=== PATIENT | female | born 1940 | race Caucasian/White ===

== ENCOUNTER 2016-06-06 07:29 | Day surgery (SDC) | payer MEDICARE ==
[~2016-06-06] VITALS: Ht 167.6 cm; Wt 65.5 kg
--- NOTE | ~2016-06-06 | OP ---
PATIENT NAME: DEJAH VILLARREAL MEDICAL RECORD: [id number] :40 LOCATION:D.OPS ADMISSION DATE: SURGEON: ANDREZ AMATO MD DATE OF OPERATION: 06/06/2016 PREOPERATIVE DIAGNOSES: 1. History of anal cancer. 2. Hypertension. POSTOPERATIVE DIAGNOSES: 1. History of anal cancer. 2. Hypertension. 3. Diverticulosis. PROCEDURE: Colonoscopy. SURGEON: Andrez Amato MD. REPORT OF PROCEDURE: An Olympus endoscope was advanced through the anus. We were able to pass all the way through the patient's cecum. The patient's prep at the cecum was not great, but I was able to see the general contour of the phillip, tried to irrigate the phillip off and was not able to get it clean very well. I did not see any enlarged masses or lesions protruding into the lumen. As we pulled back, the prep became much better. I did not see any masses, lesions or ulcerations. There were 2 or 3 separate diverticuli present in the sigmoid colon, 1 of these had some retained fecal material within it. I tried to irrigate this out, but it was impacting quite tightly. I did not see any masses in the rectal region, but there were some inflammatory changes near the anal verge, likely from the history of previous radiation. There were no ulcerations visible. There was no sign of any active bleeding. At this point, the insufflation and the scope were removed. I inspected the anus and saw no signs of any fissures, fistulas or hemorrhoids. COMPLICATIONS: None. CONDITION: Stable. ANESTHESIA: TIVA. BLOOD LOSS: None. TRANSINT:[id number] Voice Confirmation ID: [id number] DOCUMENT ID: [id number] ANDREZ AMATO MD CC: HUMA SHIPMAN MD and CHANTAL CROSS MD [id number] DICTATION DATE: 06/06/16 1051 REPORTER: 06/06/16 1753 [facility] 06/06/16 [address] [address] [place] [address]
[~2016-06-06 07:29] MED LIST: ADVIL100 M1 PO; COLACE100 MG PO; LOW DOSE ASPIRI81 M1 PO; MILK OF MAGNESI30 ML PO; MIRALAX17 GM PO; NORCO 10/325 TA1 TA1 PO; NORVASC5 MG PO; OS-CAL 500+D TA1 TAB PO; PRAVACHOL20 MG PO
[2016-06-06] MEDS ORDERED: OMEPRAZOLE20 M1 PO (09:02)
[2016-06-06] MEDS ORDERED: SYSTANE 0.3-0.4%5 ML EACH EYE (09:03)
[2016-06-06 09:04] VITALS: BP 130/83; Ht 167.6 cm; Wt 65.5 kg
--- NOTE | 2016-06-06 09:18 | NUR ---
0918 IV STARTED 22 GAUGE 1 STICK GOOD BLOOD RETURN LR AT O NO REDNESS OR SWELLING TO IV SITE.
[2016-06-06 10:30] LABS: BASOPHILS 0.3 % (0.0-2.0); EOSINOPHILS 5.1 % (0-7); HEMATOCRIT 43.3 % (36.0-48.0); HEMOGLOBIN 14.1 g/dL (12-16); IMMATURE GRANULOCYTES 0.2 % (0-5); LYMPHOCYTES 17.9 % (15-50); MCH 30.1 pg (26.0-34.0); MCHC 32.6 g/dL (31.0-37.0); MCV 92.3 fL (80.0-100.0); MEAN PLATELET VOLUME 10.1 fL (7.4-10.4); MONOCYTES 12.1 % (2-11); NEUTROPHILS 64.4 % (40-80); PLATELET COUNT 252 10x3/uL (130-400); RBC 4.69 10x6/uL (4.00-5.40); RDW 13.1 % (11.5-14.5)
[2016-06-06 10:33] LABS: CALC OSMOLALITY 282 mosm/kg (275-300); CARBON DIOXIDE 27.3 mmol/L (21.0-32.0); CHLORIDE - SERUM 106 mmol/L (98-107); CREATININE - SERUM 0.7 mg/dL (0.6-1.3); GLUCOSE 133 mg/dL (74-106); POTASSIUM - SERUM 3.6 mmol/L (3.5-5.1); SODIUM 142 mmol/L (136-145); UREA NITROGEN 8 mg/dL (7-18); eGFR NON AFRICAN AMERICAN 86 mL/min (90-120)
--- NOTE | 2016-06-06 14:12 | NUR ---
1200 IV DC WITH CATHER TIP INTACT
== END 2016-06-06 12:10 | disposition home or self-care (01) ==
LOC: D.OPS 07:29
PROVIDERS: Anesthesiology
DX: Z85.048 Personal history of other malignant neoplasm of rectum, rectosigmoid junction, and anus (principal); I10 Essential (primary) hypertension; K21.9 Gastro-esophageal reflux disease without esophagitis

== ENCOUNTER → 2017-02-06 15:16 | Outpatient (CLI) | payer MEDICARE ==
[2016-06-06 09:04] VITALS: BMI 23.3
[~2017-02-06 15:16] MED LIST changes: +OMEPRAZOLE20 M1 PO; +SYSTANE 0.3-0.4%5 ML EACH EYE
== END | disposition home or self-care (01) ==
LOC: D.MAMMO 15:16
DX: Z12.31 Encounter for screening mammogram for malignant neoplasm of breast (principal)

== ENCOUNTER 2017-11-03 10:39 | Outpatient (CLI) | payer MEDICARE, BC ==
[~2017-11-03] VITALS: Ht 167.6 cm; Wt 63.6 kg
--- NOTE | ~2017-11-03 | OP ---
PATIENT NAME: DEJAH VILLARREAL MEDICAL RECORD: [id number] :40 LOCATION:D.CAT ADMISSION DATE: SURGEON: NINFA BAKER MD DATE OF OPERATION: 11/03/2017 PROCEDURE: Lead portion of permanent pacemaker placement. INDICATION: Sick sinus syndrome with pauses. SURGEON: Andrez Aguilar MD DESCRIPTION OF PROCEDURE: The right subclavian was cannulated via modified Seldinger technique via Dr. Aguilar. First under fluoroscopic guidance, I placed the RV lead in RV apex without difficulty. Next, again under fluoroscopic guidance, I placed the right atrial lead in the right atrial appendage without difficulty. After adequate P waves and thresholds were obtained, the leads were attached to appropriate poles of the generator and the pocket was closed via Dr. Aguilar. IMPRESSION: Successful lead portion of permanent pacemaker placement. ESTIMATED BLOOD LOSS: Minimal. COMPLICATIONS: None. DISPOSITION: The floor, stable. TRANSINT:[id number] Voice Confirmation ID: [id number] DOCUMENT ID: [id number] NINFA BAKER MD at 0843 CC: [id number] DICTATION DATE: 11/03/17 1502 MORTICIAN HELPER: 11/03/17 1514 DEP CLI 11/04/17 [id number] [place] [address]
--- NOTE | ~2017-11-03 | OP ---
PATIENT NAME: DEJAH VILLARREAL MEDICAL RECORD: [id number] :40 LOCATION:D.CAT ADMISSION DATE: SURGEON: ANDREZ AMATO MD DATE OF OPERATION: 11/03/2017 PREOPERATIVE DIAGNOSES: 1. Sick sinus syndrome. 2. Hypertension. POSTOPERATIVE DIAGNOSES: 1. Sick sinus syndrome. 2. Hypertension. PROCEDURES: 1. Pacemaker placement. 2. Fluoroscopic interpretation. SURGEON: Andrez Amato MD CARBIDE OPERATOR: Eric Pemberton MD REPORT OF PROCEDURE: The patient's right chest was prepped and draped in sterile fashion. A total of 30 mL of 1% lidocaine with epinephrine was infused into the surrounding tissues. A transverse incision was made on the right superolateral chest and a subcutaneous pouch was made over the pectoral fascia. We accessed the right subclavian vein times 2 and advanced needles with ease. Fluoro was used to note that the wires were in good position. At this point, dilator trocars were placed over the wires and the wires and dilators were removed. The 2 leads were inserted and at this point, Dr. Pemberton positioned the leads appropriately. Once they were noted to be in position and functioning appropriately, then the leads were sutured into place with 0 Ti-Cron. We then affixed the leads to the new pacemaker in place within the subcutaneous pouch. This was sutured to the pectoral fascia using a single interrupted 0 Ti-Cron. We irrigated out the wound thoroughly with antibiotic solution. The subcutaneous tissues were then reapproximated with interrupted 3-0 Vicryl and the skin was closed with running subcutaneous 5-0 Monocryl. COMPLICATIONS: None. CONDITION: Stable. ANESTHESIA: Local MAC. BLOOD LOSS: Minimal. TRANSINT:[id number] Voice Confirmation ID: [id number] DOCUMENT ID: [id number] OPERATIVE REPORT [id number] DEJAH VILLARREAL ANDREZ AMATO MD at 2259 CC: [id number] DICTATION DATE: 11/03/17 1449 CROWN AND BRIDGE TECHNICIAN: 11/03/17 1554 DEP CLI 11/04/17 [place] [id number]
--- NOTE | ~2017-11-03 | HEMODYNAMI ---
PATIENT:DEJAH VILLARREAL MEDICAL RECORD: [id number] : 40 LOCATION:DCELESTINE ADMISSION DATE: 11/03/17 Generatedon:11/03/201714:52 Patient name: DEJAH VILLARREAL Patient #: [id number] SSN: DO B: 1940 Date of study: 11/03/2017 Page: Of Hemodynamic Procedure Report Patient Data Patient Demographics Procedure consent was obtained First Name: DEJAH Gender: Female Last Name: PHIL : 1940 [facility] Initial: GILMAR Age: 77 year(s) Patient #: [id number] Race: Unknown Additional ID: [id number] Contact details [address]: [address] [place] [address] State: [place] City: [place] Zip code: [address] Past Medical History Allergies: No known allergies Admission Admission Data Admission Date: 11/03/2017 Admission Time: 10:39 Height (in.): 5.6 BSA: 0.29 (m2) Height (cm.): 14.22 BMI: 3138.7 (kg/m2) Weight (lbs.): 140 Weight (kg.): 63.5 Procedure Procedure Types Cath Procedure Diagnostic Procedure PPM/ICD PPM Dual Implant Sedation Charges Moderate Sedation up to 30 minutes Procedure Description Procedure Date Procedure Date: 11/03/2017 Procedure Start Time: 14:13 Procedure End Time: 14:49 Procedure Staff Name Function Eric Magana MD Performing Physician Syl Puri RT Monitor Danielle Torres RT Scrub Tony Miller RN Nurse Andrez Aguilar MD Assisting physician Procedure Data Cath Procedure Fluoroscopy Diagnostic fluoroscopy Total fluoroscopy Time: 3.5 time: 3.5 min min Diagnostic fluoroscopy Total fluoroscopy dose: 49 dose: 49 mGy mGy Estimated blood loss: 10 ml Procedure Complications No complications Procedure Medications Medication Administration Route Dosage Oxygen etCO2 Nasal cannula 2 l/min Lidocaine 1% with added to field 20 ml Epi Bupivacaine 0.5% added to field 10 ml Ancef (1Gm/50ml NS) I.V.P.B 1 g Ancef Irrigation Topical 1 g (1gm/500ml NS) Versed I.V. 1 mg Fentanyl I.V. 50 mcg Versed I.V. 1 mg Fentanyl I.V. 50 mcg Fentanyl I.V. 50 mcg Fentanyl I.V. 50 mcg Hemodynamics Rest BSA: 0.29 (m2) O2 Consumption: Estimated: 29.16 (ml/min) O2 Consumption indexed: Estimated:100.55 (ml/min/m) Heart Rate: 96 (bpm) Snapshots Pre Cath Intra NCS Post Cath Vital Signs Time Heart Resp SPO2 etCO2 NIBP (mmHg) Rhythm Pain Sedation Rate (ipm) (%) (mmHg) Status Level (bpm) 14:06:37 74 16 97 28.6 139/86(113) NSR 0 (11) 10(A) , No pain 14:10:51 98 16 98 31.6 123/78(108) NSR 0 (11) 10(A) , No pain 14:14:59 98 18 97 34.6 126/87(107) NSR 0 (11) 10(A) , No pain 14:19:04 103 17 96 37.6 130/84(98) ST 0 (11) 10(A) , No pain 14:23:14 93 16 96 36.8 113/74(93) NSR 0 (11) 10(A) , No pain 14:27:22 83 15 95 37.6 114/70(93) NSR 0 (11) 10(A) , No pain 14:31:24 124 18 97 38.3 127/103(108) ST 0 (11) 10(A) , No pain 14:35:32 133 20 99 35.3 125/85(100) ST 0 (11) 10(A) , No pain 14:39:39 110 18 97 34.5 123/80(102) ST 0 (11) 10(A) , No pain 14:43:48 104 16 98 38.3 124/82(96) ST 0 (11) 10(A) , No pain 14:47:53 103 14 98 33.8 130/89(107) ST 0 (11) 10(A) , No pain Medications Time Medication Route Dose Verified Delivered Reason Notes Effectiv eness by by 14:01:05 Ancef I.V.P.B 1 g Eric Jimenez Per (1Gm/50ml Izzy Miller RN physician NS) 14:09:03 Fentanyl I.V. 50 Eric Buffie for [facility] [place] Izzy Miller RN sedation 14:09:56 Versed I.V. 1 mg Eric Buffie for Izzy Imller RN sedation 14:10:31 Oxygen etCO2 2 Eric Buffie used for Nasal l/min Izzy Miller detail drafter cannula 14:10:40 Lidocaine added 20 ml Eric Moravian for local 1% with Epi to St Rolando Aguilar MD anesthetic field 14:10:51 Bupivacaine added 10 ml Eric Moravian for local 0.5% to St Rolando Aguilar MD anesthetic field 14:11:32 Ancef Topical 1 g Eric Buffie used for Irrigation Izzy Miller detail drafter (1gm/500ml NS) 14:16:57 Versed I.V. 1 mg Eric Buffie for Izzy Miller RN sedation 14:17:01 Fentanyl I.V. 50 Eric Buffie for [facility] [place] Izzy Miller RN sedation 14:21:37 Fentanyl I.V. 50 Eric Buffie for [facility] [place] Izzy Miller RN sedation 14:35:24 Fentanyl I.V. 50 Eric Buffie for [facility] [place] Izzy Miller RN sedation Procedure Log Time Note 13:40:57 Danielle MOTT(R) sent for patient. Start room use. 13:51:07 Time tracking: Regular hours (M-F 7:00 - 5:00) 13:51:10 Plan of Care:Hemodynamics will remain stable., Cardiac rhythm will remain stable., Comfort level will be maintained., Respiratory function will remain adequate., Patient/ family verbilizes understanding of procedure., Procedure tolerated without complication., Recovers from procedure without complications.. 13:51:11 Signed procedure consent form obtained from patient. 13:51:16 Patient received from Pre/Post Procedure Room to CCL 3 Alert and oriented. Tansferred to table in Supine position. 13:51:17 Warm blankets applied, and lo hugger turned on for patient comfort. 13:51:17 Correct patient and procedure confirmed by team. 13:51:18 ECG and BP/O2 sat monitors applied to patient. 13:51:28 Patient Height : 5.6 inches 13:51:31 Patient Weight : 140 lbs 13:51:43 Medtronic payable representative PAIGE FOSTER present for procedure. 13:51:54 Patient allergic to No known allergies 14:01:05 Ancef (1Gm/50ml NS) 1 g I.V.P.B was administered by Tony Miller RN; Per physician; 14:05:33 Vital chart was started 14:05:39 Baseline sample Acquired. 14:05:44 Rhythm: sinus rhythm 14:05:45 Full Disclosure recording started 14:05:52 H&P Date Dictated: 10/29/2017 Within 30 days and on chart., H&P Addendum completed by physician on day of procedure. (MUST COMPLETE FOR ALL OUTPATIENTS). 14:05:53 Pre-procedure instructions explained to patient. 14:05:54 Pre-op teaching completed and patient verbalized understanding. 14:05:56 Family in patients room. 14:05:57 Patient NPO since Midnight. 14:05:59 Is the patient allergic to Iodine/contrast media? No. 14:06:01 Is patient on blood thinner?No 14:06:02 Patient diabetic? No. 14:06:04 Patient not . Patient is over age 55. 14:06:06 Previous problem with sedation/anesthesia? No ? 14:06:07 Snore? Yes 14:06:08 Sleep apnea? No 14:06:14 Deviated septum? No 14:06:15 Opens mouth fully? Yes 14:06:16 Sticks out tongue? Yes 14:06:18 Airway obstruction? No ? 14:06:20 Dentures? No ? 14:06:29 IV patent on arrival in left forearm with 0.9% NaCl at KVO. 14:06:38 Right chest area was prepped with chlora-prep and draped in sterile fashion 14:06:40 Alarms reviewed by R. N. 14:06:41 Sharps counted by scrub and verified by R.N. 14:07:03 Medtronic Advisa MRI PPM Dual Generator [id number] opened to sterile field. 14:07:19 Medtronic 4574-45 PPM Lead opened to sterile field. 14:07:27 Medtronic 4074-52 PPM Lead opened to sterile field. 14:07:43 Mepilex Dressing (845916) opened to sterile field. 14:08:07 3-0 Vicryl Multipack [id number] opened to sterile field. 14:08:17 5-0 Monocryl PS3 [id number] opened to sterile field. 14:08:22 2-0 Ticron Multipack ([id number]) opened to sterile field. 14:08:32 --------ALL STOP TIME OUT------ 14:08:33 Final Timeout: patient, procedure, and site verified with staff and physician. All members of the team are in agreement. 14:08:36 Right Arm site verified by team. 14:08:39 Physical assessment completed. ASA score P 2 - A patient with mild systemic disease as per Eric Magana MD. 14:08:42 Sedation plan: IV Moderate Sedation Medication:Versed, Fentanyl 14:09:03 Fentanyl 50 mcg I.V. was administered by Tony Miller RN; for sedation; 14:09:56 Versed 1 mg I.V. was administered by Tony Miller RN; for sedation; 14:10:31 Oxygen 2 l/min etCO2 Nasal cannula was administered by Tony Miller RN; used for procedure; 14:10:40 Lidocaine 1% with Epi 20 ml added to field was administered by Andrez Aguilar MD; for local anesthetic; 14:10:51 Bupivacaine 0.5% 10 ml added to field was administered by Andrez Aguilar MD; for local anesthetic; 14:11:32 Ancef Irrigation (1gm/500ml NS) 1 g Topical was administered by Tony Miller RN; used for procedure; 14:12:57 Procedure started. 14:13:11 Pre sharps counted by scrub and verified by RN: Sutures: 7; Sponges: 5; Stick needles: 2; Skin needles: 2; Blade: 1; Cautery: 1 14:13:13 Grounding pad site Left thigh. 14:13:14 Grounding pad site free from injury. 14:13:20 Lidocaine 1% w/epi and Bupivacaine 0.5% was administered to right subclavicular area by Andrez Aguilar MD . 14:14:09 Incision made to right subclavicular area. 14:16:57 Versed 1 mg I.V. was administered by Tony Miller RN; for sedation; 14:17:01 Fentanyl 50 mcg I.V. was administered by Tony Miller RN; for sedation; 14:17:24 Generator pocket made/opened. 14:20:09 Right subclavian vein accessed with 7Fr Peel Away Sheath. 14:21:32 Right subclavian vein accessed with 7Fr Peel Away Sheath. 14:21:37 Fentanyl 50 mcg I.V. was administered by Tony Miller RN; for sedation; 14:22:32 Ventricular lead inserted and advanced. 14:22:36 Atrial lead inserted and advanced. 14:33:38 Ventricular lead positioned. 14:33:42 Ventricular lead tested. 14:35:01 Atrial lead positioned. 14:35:05 Atrial lead tested. 14:35:24 Fentanyl 50 mcg I.V. was administered by Tony Miller RN; for sedation; 14:35:57 Peel-a-way sheath was split and removed. 14:35:58 Peel-a-way sheath was split and removed. 14:36:58 PPM Dual was attached to lead(s) and inserted into pocket. 14:37:58 PPM Dual was inserted subcutaneously to right chest. 14:38:20 Device pocket was irrigated with Ancef. 14:38:48 Atrial lead attachment was completed with 2-0 ticron. 14:38:51 Ventricular lead attachment was completed with 2-0 prolene. 14:40:16 Generator was sutured in place with 2-0 ticron. 14:40:19 Subcutaneous closure was completed with 3-0 vicryl plus. 14:42:19 Skin closure was completed with 5-0 monocryl. 14:42:42 Post sharps counted by scrub and verified by RN: Sutures: 7; Sponges: 5; Stick needles: 2; Skin needles: 2; Blade: 1; Cautery: 1 14:46:06 Procedure ended.(Physican Out) 14:46:49 Parameters-- Generator: Mode: AAIR/DDDR. Lower Rate: 60bpm. Upper Rate: 110bpm. 14:47:20 Parameters--Ventricular P/R Wave: 8.5mV. Current: .10mA; Threshold: .4V; Impedence: 1848OHMS. 14:47:40 Parameters--Atrial P/R Wave: 3.4mV. Current: .90mA; Threshold: .6V; Impedence: 604OHMS. 14:47:47 Rt Chest incision was dressed with Mepilex dressing. 14:48:18 Fluoroscopy time 03.50 minutes. 14:48:24 Fluoroscopy dose: 49 mGy 14:48:24 Flurop Dose total: 49 14:48:31 Sharps counted by scrub and verified by R.N. 14:48:37 Post-procedure physical assessment completed. ASA score P 2 - A patient with mild systemic disease as per Eric Magana MD. 14:48:39 Post procedure rhythm: paced 14:48:42 Estimated blood loss: 10 ml 14:48:43 Post procedure instruction explained to patient.Patient verbalizes understanding. 14:48:44 Patient needs reinforcement of post procedure teaching. 14:49:09 Procedure type changed to Cath procedure, Diagnostic procedure, PPM/ICD, PPM Dual Implant, Sedation Charges, Moderate Sedation up to 30 minutes 14:49:32 Procedure and supply charges have been captured, reviewed, submitted and are correct. 14:49:35 Procedure Complication : No complications 14:49:37 Vital chart was stopped 14:49:37 See physician's report for complete and final results. 14:49:39 Report given to PCU. 14:49:42 Patient transfered to PCU with Bed. 14:49:44 Procedure ended. 14:49:44 Full Disclosure recording stopped 14:49:52 End room use (Document Last) Device Usage Item Name Manufacture Quantity Catalog Hospital Part Current Minimal Lot# / Serial# Number Charge Number Stock Stock Code Medtronic Medtronic 1 [id number] 5 [id number] Advisa MRI EXP: PPM Dual 2018-11-13 Generator [id number] Medtronic Medtronic 1 4574-45 [id number] 5 [id number] 4574-45 PPM EXP: Lead [id number] Medtronic Medtronic 1 4074-52 608262 337719 5 [id number] 4074-52 PPM EXP:2019-07-25 Lead [id number] Mepilex Cardinal 1 177616 141130 869607 322479 5 Dressing Health (746137) 3-0 Vicryl Ethicon 1 [id number] 747929 392896 972462 5 Multipack [id number] 5-0 Monocryl Ethicon 1 [id number] 745300 993719 5 PS3 [id number] 2-0 Ticron Ethicon 7 [id number] 889746 00208 146433 5 Multipack ([id number]) Signature Audit [place] Stage Time Signature Unsigned Intra-Procedure 11/03/2017 Syl Puri 2:52:14 PM RT(R) Signatures Monitor : Syl Puri Signature : RT Date : Time : [address] [address]
[2017-11-03 11:07] VITALS: BP 145/85; BMI 22.6
[2017-11-03 11:48] LABS: CALC OSMOLALITY 278 mosm/kg (275-300); CALCIUM 8.2 mg/dL (8.5-10.1); CARBON DIOXIDE 24.6 mmol/L (21.0-32.0); CHLORIDE - SERUM 106 mmol/L (98-107); CREATININE - SERUM 0.7 mg/dL (0.6-1.3); GLUCOSE 126 mg/dL (74-106); POTASSIUM - SERUM 3.7 mmol/L (3.5-5.1); SODIUM 139 mmol/L (136-145); UREA NITROGEN 11 mg/dL (7-18); eGFR NON AFRICAN AMERICAN 86 mL/min (90-120)
[2017-11-03 12:03] LABS: APTT 26.9 SECONDS (22.8-39.4); INR 0.94 (0.85-1.17); PROTIME 12.2 SECONDS (11.6-15.0)
[2017-11-03 12:04] LABS: HEMATOCRIT 40.4 % (36.0-48.0); HEMOGLOBIN 13.5 g/dL (12-16); MCH 30.1 pg (26.0-34.0); MCHC 33.4 g/dL (31.0-37.0); MCV 90.2 fL (80.0-100.0); MEAN PLATELET VOLUME 9.7 fL (7.4-10.4); RBC 4.48 10x6/uL (4.00-5.40); RDW 12.9 % (11.5-14.5); WBC 5.9 10x3/uL (4.8-10.8)
[2017-11-03 17:42] VITALS: Ht 167.6 cm; Wt 63.6 kg
[2017-11-03 20:43] VITALS: BP 124/73
[2017-11-04 00:22] VITALS: BP 130/74
[2017-11-04 05:24] VITALS: BP 129/70
[2017-11-04 07:45] VITALS: BP 125/69
== END 2017-11-04 11:38 | disposition home or self-care (01) ==
LOC: D.CATH 10:39 → D.M2 15:24 → D.CATH 11-04 11:38
PROVIDERS: Internal Medicine Interventional Cardiology
DX: I49.5 Sick sinus syndrome (principal); I10 Essential (primary) hypertension; Z01.812 Encounter for preprocedural laboratory examination

== ENCOUNTER → 2017-12-07 08:48 | Outpatient (CLI) | payer MEDICARE, BC ==
[2017-11-03 17:42] VITALS: BMI 22.6
[~2017-12-07 08:48] MED LIST changes: +MULTI-DAY VITAM1 TAB PO
== END | disposition home or self-care (01) ==
LOC: D.CT 12-03 09:30
DX: C21.0 Malignant neoplasm of anus, unspecified (principal)

== ENCOUNTER 2017-12-10 07:19 | Day surgery (SDC) | payer MEDICARE, BC ==
[~2017-12-10] VITALS: Ht 167.6 cm; Wt 63.6 kg
--- NOTE | ~2017-12-10 | OP ---
PATIENT NAME: DEJAH VILLARREAL MEDICAL RECORD: [id number] :40 LOCATION:D.OPS ADMISSION DATE: SURGEON: ANDREZ AMATO MD DATE OF OPERATION: 12/10/2017 PREOPERATIVE DIAGNOSES: 1. History of anal cancer. 2. Hypertension. 3. Gastroesophageal reflux disease. POSTOPERATIVE DIAGNOSES: 1. History of anal cancer. 2. Hypertension. 3. Gastroesophageal reflux disease. PROCEDURE: Colonoscopy. SURGEON: Andrez Amato MD REPORT OF PROCEDURE: An Olympus endoscope was advanced through the patient's anus. We were able to pass the scope all the way through the patient's colon to the cecum. The appendiceal orifice could be visualized as we began our pullback. No masses or lesions were noted. There was no sign of any stricturing. The patient did have some diverticula present mainly in the sigmoid colon, but there were a couple in the transverse colon. As we pulled back, we did a thorough inspection, the patient had an adequate prep. After some irrigation, we were able to see all the phillip of the patient's colon with ease. In the rectum, there were no masses or lesions noted. The retroflexed view showed no signs of any internal hemorrhoids or fissures. At this point, the insufflation and endoscope were removed. COMPLICATIONS: None. CONDITION: Stable. ANESTHESIA: TIVA. BLOOD LOSS: Minimal. DISPOSITION: Home. Need repeat colonoscopy in 5 yrs TRANSINT:[id number] Voice Confirmation ID: [id number] DOCUMENT ID: [id number] ANDREZ AMATO MD at 1409 CC: HUMA SHIPMAN [id number] DICTATION DATE: 12/10/17 1023 [facility] [employer]: 12/10/17 1034 [facility] 12/10/17 [place] [address] [place] [address]
[~2017-12-10 07:19] MED LIST changes: -MULTI-DAY VITAM1 TAB PO
[2017-12-10 07:45] LABS: BASOPHILS 0.3 % (0-2); EOSINOPHILS 3.2 % (0-7); HEMATOCRIT 41.1 % (36.0-48.0); HEMOGLOBIN 13.7 g/dL (12-16); IMMATURE GRANULOCYTES 0.2 % (0-5); LYMPHOCYTES 16.9 % (15-50); MCH 30.4 pg (26.0-34.0); MCHC 33.3 g/dL (31.0-37.0); MCV 91.1 fL (80.0-100.0); MEAN PLATELET VOLUME 9.6 fL (7.4-10.4); MONOCYTES 9.4 % (2-11); PLATELET COUNT 247 10x3/uL (130-400); RBC 4.51 10x6/uL (4.00-5.40); RDW 13.1 % (11.5-14.5); WBC 6.3 10x3/uL (4.8-10.8)
[2017-12-10 07:49] LABS: CALC OSMOLALITY 281 mosm/kg (275-300); CALCIUM 8.8 mg/dL (8.5-10.1); CARBON DIOXIDE 28.5 mmol/L (21.0-32.0); CHLORIDE - SERUM 105 mmol/L (98-107); CREATININE - SERUM 0.7 mg/dL (0.6-1.3); GLUCOSE 128 mg/dL (74-106); POTASSIUM - SERUM 3.7 mmol/L (3.5-5.1); SODIUM 141 mmol/L (136-145); UREA NITROGEN 10 mg/dL (7-18); eGFR NON AFRICAN AMERICAN 86 mL/min (90-120)
[2017-12-10] MEDS ORDERED: MULTI-DAY VITAM1 TAB PO (08:12)
[2017-12-10 08:20] VITALS: BP 118/62; Ht 167.6 cm; Wt 63.6 kg
== END 2017-12-10 11:18 | disposition home or self-care (01) ==
LOC: D.OPS 07:19
PROVIDERS: Anesthesiology
DX: K21.9 Gastro-esophageal reflux disease without esophagitis (principal); Z85.048 Personal history of other malignant neoplasm of rectum, rectosigmoid junction, and anus; Z08 Encounter for follow-up examination after completed treatment for malignant neoplasm

== ENCOUNTER 2018-10-28 09:00 | Outpatient (CLI) | payer MEDICARE, BC ==
[2017-12-10 08:20] VITALS: BMI 22.6
[~2018-10-28 09:00] MED LIST changes: +MULTI-DAY VITAM1 TAB PO
== END 2018-10-28 10:00 | disposition home or self-care (01) ==
LOC: D.MAMMO 09:00
PROVIDERS: ATTEND Family Medicine
DX: Z12.31 Encounter for screening mammogram for malignant neoplasm of breast (principal)

== ENCOUNTER → 2018-12-02 09:49 | Outpatient (CLI) | payer MEDICARE, BC ==
[2017-12-10 08:20] VITALS: BMI 22.6
--- NOTE | 2018-12-05 09:56 | EC ---
PATIENT:DEJAH VILLARREAL DATE OF SERVICE: 12/02/18 SEX: F MEDICAL RECORD: [id number] DATE OF : 40 LOCATION:D.[facility] AGE OF PATIENT: 78 ADMISSION DATE: 12/02/18 REFERRING PHYSICIAN: INTERPRETING PHYSICIAN: NINFA BAKER MD ECHOCARDIOGRAM REPORT ECHO CHARGES 4 ECHO COMPLETE Date: 12/02/18 CLINICAL DIAGNOSIS: PALPITATIONS H/O HTN/PACEMAKER PLACEMENT ECHOCARDIOGRAPHIC MEASUREMENTS (adult normal given) AC root (d.<3.7cm) 3.1 cm LV Septum d (<1.2 cm> 1.2 cm Valve Excursion 1.7 cm LV Septum (systole) 1.6 cm Left Atria (s.<4.0cm> 3.1 cm LVPW d(<1.2cm) 1.1 cm RV (d.<2.3cm) 2.0 cm LVPW (sytole) 1.6 cm LV diastole(<5.6CM) 5.0 cm MV E-F(>70mm/sec) cm LV systole 3.4 cm LVOT Diameter 1.5 cm MV exc.(>10mm) cm Est.ejection fraction (50-75%) % DOPPLER: LVIT cm/sec A 49.0 cm/sec E 70.0 cm/sec LA cm/sec RVSP 39.0 mmHg LVOT 108 cm/sec AOP1/2T m/s Asc. Ao 146 cm/sec RVOT 70.0 cm/sec RA cm/sec PA 88.0 cm/sec AV Gradient Peak 8.5 mmHg AV Mean 4.1 mmHg AV Area 1.5 cm MV Gradient Peak 3.0 mmHg MV Mean 1.4 mmHg MV Area cm COMMENTS: OP - HC Education Manager: 1 CATALINO RIO HONDO Field Geologist: 3 Dr. Pemberton TAPE# PACS Pericardial Effusion N DATE OF SERVICE: 12/02/2018 Adequate 2D, color flow imaging, spectral Doppler, and M-Mode No LVH. LV internal dimensions are normal. LV function shows septal bounce consistent with underlying paced rhythm; however, LV function appears to lower limits of normal at 50%. Aortic valve is tricuspid. No evidence of stenosis by Doppler interrogation. Left atrium is normal at 3.1 cm. Mitral valve shows no prolapse. Trace MR. Right-sided chambers are grossly normal. Trace TR. ECHOCARDIOGRAM REPORT [id number] DEJAH VILLARREAL TRANSINT:[id number] Voice Confirmation ID: [id number] DOCUMENT ID: [id number] NINFA BAKER MD at 0956 CC: [id number] DICTATION DATE: 12/04/1851 GUARDIAN AD LITEM: 12/04/18 1124 DEP CLI 12/02/[address] [address]
== END | disposition home or self-care (01) ==
LOC: D.HCCECHO 09:49
PROVIDERS: ATTEND Internal Medicine Interventional Cardiology
DX: I10 Essential (primary) hypertension (principal)

== ENCOUNTER → 2019-12-07 10:26 | Outpatient (CLI) | payer MEDICARE, BC ==
[2017-12-10 08:20] VITALS: BMI 22.6
--- NOTE | 2019-12-09 08:55 | EC ---
PATIENT:DEJAH VILLARREAL DATE OF SERVICE: 12/07/19 SEX: F MEDICAL RECORD: [id number] DATE OF : 40 LOCATION:D.[facility] AGE OF PATIENT: 79 ADMISSION DATE: 12/07/19 REFERRING PHYSICIAN: INTERPRETING PHYSICIAN: NINFA BAKER MD ECHOCARDIOGRAM REPORT ECHO CHARGES 4 ECHO COMPLETE Date: 12/07/19 CLINICAL DIAGNOSIS: HX OF HTN/PACEMAKER ASSESS EF AND VALVES ECHOCARDIOGRAPHIC MEASUREMENTS (adult normal given) AC root (d.<3.7cm) 3.2 cm LV Septum d (<1.2 cm> 1.5 cm Valve Excursion 1.3 cm LV Septum (systole) 1.7 cm Left Atria (s.<4.0cm> 3.4 cm LVPW d(<1.2cm) 1.5 cm RV (d.<2.3cm) 3.0 cm LVPW (sytole) 1.8 cm LV diastole(<5.6CM) 5.4 cm MV E-F(>70mm/sec) cm LV systole 3.5 cm LVOT Diameter 1.7 cm MV exc.(>10mm) 1.1 cm Est.ejection fraction (50-75%) % DOPPLER: LVIT cm/sec A 81.0 cm/sec E 65.0 cm/sec LA cm/sec RVSP 32 mmHg LVOT 120 cm/sec AOP1/2T 335 m/s Asc. Ao 129 cm/sec RVOT 73 cm/sec RA cm/sec PA 108 cm/sec AV Gradient Peak 6.65 mmHg AV Mean 2.93 mmHg AV Area 2.1 cm MV Gradient Peak 2.57 mmHg MV Mean 1.26 mmHg MV Area cm COMMENTS: Resident Hall Director: 2 ELZA AZUL Therapist Phys: 3 Dr. Pemberton TAPE# PACS Pericardial Effusion N DATE OF SERVICE: Adequate 2D, color flow imaging, spectral Doppler, and M-mode. LVH is present. LV internal dimension is normal. Wall motion is normal. EF is greater than or equal to 55%. Aortic valve is sclerotic. No evidence of stenosis by Doppler interrogation. Mild AI by color flow imaging. Left atrium is normal at 3.4 cm. Mitral valve shows no prolapse. Mild MR. Right-sided chambers are grossly normal. Trace to mild TR. ECHOCARDIOGRAM REPORT [id number] REYES NTS:[id number] Voice Confirmation ID: [id number] DOCUMENT ID: [id number] NINFA BAKER MD at 0855 CC: [id number] DICTATION DATE: 12/08/19 142 MATE CHIEF: 12/08/19 2135 DEP CLI 12/07/19 [place] [id number] [place] [id number]
== END | disposition home or self-care (01) ==
LOC: D.HCCECHO 10:26
PROVIDERS: ATTEND Internal Medicine Interventional Cardiology
DX: I10 Essential (primary) hypertension (principal)